=== PATIENT | male | born 1970 | race Caucasian/White ===

== ENCOUNTER 2020-11-16 16:16 | Emergency (ER) | payer MEDICAID, SELFPAY ==
[2020-11-16 16:54] VITALS: BP 133/87; PULSE 73; RESP 16; TEMP 36.8; O2SAT 97
--- NOTE | 2020-11-16 17:11 | XRR_ITS ---
PROCEDURE INFORMATION: Exam: XR Left Shoulder Exam date and time: 11/16/2020 5:11 PM Age: 50 years old Clinical indication: Pain; Shoulder; Left; Additional info: Fall injury TECHNIQUE: Imaging protocol: XR Left shoulder. Views: 2 or more views. COMPARISON: No relevant prior studies available. FINDINGS: Bones/joints: Normal. Soft tissues: Normal. XR/XR shoulder LT min 2V* [id number] IMPRESSION: No acute findings.
--- NOTE | 2020-11-16 18:56 | W.ED.EXTPRO ---
HPI - Extremity Problem General: Chief complaint: Extremity Injury, Upper Stated complaint: L. SHOULDER & HAND PAIN Time Seen by Provider: 11/16/20 18:50 Source: patient Mode of arrival: ambulatory Limitations: no limitations History of Present Illness: HPI Narrative: 50-year-old male states he was fishing yesterday and slipped and fell. He states he landed on his left shoulder. He states he had left shoulder pain since then. He is currently in a sling that he already had at home. He states he has some tingling into his hands. States he is able to move that arm but it does have pain when he moves it. He states pain is worse with movement improved with rest. He states that currently his pain is a 3 out of 10. Denies any other injuries when he fell. Denies hitting his head denies any neck pain. Associated symptoms: Deny chest pain, fever(s) or rash Review of Systems Const: Denies: fever(s), chills, body aches or change in appetite Eyes: Denies: blurry vision or eye discomfort ENMT: Denies: throat pain or dental pain Card: Denies: chest pain Resp: Denies: dyspnea GI: Denies: abdominal pain, nausea, vomiting or diarrhea : Denies: dysuria Musc: Reports: extremity pain Skin/Breast: Denies: rash Neuro: Denies: headache(s) Psych: Denies: depression Jaya/Lymph: Denies: easy bruising All/Imm: Denies: urticaria Physical Exam Const: COMMON NORMALS: no acute distress, patient oriented x3 and healthy appearing HENMT: COMMON NORMALS: normocephalic and atraumatic HEAD & SCALP: normocephalic and atraumatic Eye: COMMON NORMALS: Equal, round and reactive pupils present and EOMs intact bilaterally PUPIL: Yes Equal, round and reactive pupils present Neck/C-Spine: COMMON NORMALS: full ROM and supple Chest: COMMONS NORMALS: normal inspection of the chest and normal palpation of entire chest wall Resp: COMMON NORMALS: normal respiratory effort, No retractions, No use of accessory muscles and clear to auscultation bilaterally AUSCULTATION: clear to auscultation bilaterally Cardio: COMMON NORMALS: regular rate, regular rhythm and No murmurs present (Cardio) RATE: regular rate RHYTHM: regular rhythm GI: COMMON NORMALS: Normal to inspection, nondistended, normoactive bowel sounds present, Soft to palpation, non-tender and no masses PALPATION: Yes Soft to palpation Extremity: COMMON NORMALS: normal to inspection NARRATIVE EXTREMITY EXAM: Tenderness over left shoulder with no obvious deformity. Range of motion is intact. He has distal pulses and sensation intact. Neuro: COMMON NORMALS: patient oriented x3, moves all extremities and no focal motor deficits Psych: COMMON NORMALS: mental status grossly normal, Normal thought process present and cooperative THOUGHT PROCESS: Normal thought process present Skin: COMMON NORMALS: no rashes or lesions noted and no wounds GENERAL SKIN EXAM: no rashes or lesions noted Course Vital Signs: Vital signs: Vital Signs Temperature 98.3 F 11/16/20 16:54 Pulse Rate 73 11/16/20 16:54 Respiratory Rate 16 11/16/20 16:54 Blood Pressure 133/87 11/16/20 16:54 Pulse Oximetry 97 11/16/20 16:54 MDM - Extremity (Nontraumatic) MDM Narrative: Medical decision making narrative: Patient presents here with a shoulder sprain. X-ray shows no fractures. Exam here is benign. He is to continue to wear the sling and ice. We will set him up with follow-up with orthopedics. He has no other noted injuries from his fall. Imaging Data^: xr L shoulder: Attestation: I personally reviewed and interpreted this imaging study as follows: My impression: no acute fx Discharge Plan Discharge Patient Disposition: Home Clinical Impression: Sprain of left shoulder Qualifiers: Encounter type: initial encounter Shoulder sprain type: unspecified sprain Qualified Code(s): S43.402A - Unspecified sprain of left shoulder joint, initial encounter Condition: Stable Prescriptions: New methocarbamol 750 mg tablet 750 mg PO Q6H PRN (Reason: spasms) Qty: 20 RF: 0 Discharge Orders: Discharge ED (Routine); Ordered 11/16/20 Ordered By: Roque Oneill Discharge Diet: Advance as tolerated Discharge Activity: Resume usual activity Patient Instructions: Shoulder Sprain (ED) Coding Level of Care Code ED Biology Instructor for Moni Juárez
[2020-11-16 18:58] VITALS: BP 129/81; PULSE 70; O2SAT 99
[2020-11-16] MEDS: HYDROcodone-acetaminophen 5-325 mg Tablet 1 TAB PO (19:03)
--- NOTE | 2020-11-17 09:42 | DCPLANNER ---
manager oncology had message to schedule a follow up appointment for patient with ortho. manager oncology called the ortho clinic, spoke with Nicole, gave clinic patients information. manager oncology was told that patients information would be printed and reviewed. Clinic will call patient with appointment information.
--- NOTE | 2020-11-18 14:39 | DCPLANNER ---
Patient has a follow up appointment scheduled for Sunday, October, at 8:[address] Urena. Clinic will call patient with appointment information.
--- NOTE | 2021-01-06 07:46 | DCPLANNER ---
Patient had a follow up appointment scheduled for 11.22.[address] Urena at [facility] - patient did not attend appointment.
== END 2020-11-16 19:06 | disposition home or self-care (01) ==
PROVIDERS: Emergency Provider Emergency Medicine
DX: S43.402A Unspecified sprain of left shoulder joint, initial encounter (principal); W01.0XXA Fall on same level from slipping, tripping and stumbling without subsequent striking against object, initial encounter
CPT/HCPCS: 73030; 99283

== ENCOUNTER → 2021-10-14 09:41 | Outpatient (BNVA) | payer MEDICAID, SELFPAY | PROVIDERS: Visit Provider Nurse Practitioner | DX: I10 Essential (primary) hypertension (principal); Z20.2 Contact with and (suspected) exposure to infections with a predominantly sexual mode of transmission; Z79.899 Other long term (current) drug therapy | CPT/HCPCS: 80053; 80061; 80074; 80307; 82306; 84443; 85025; 86592; 87491; 87522; 87591 ==

== ENCOUNTER → 2021-12-06 09:35 | Outpatient (BNVA) | payer MEDICAID, SELFPAY | PROVIDERS: PCP Nurse Practitioner; Visit Provider Nurse Practitioner | DX: M79.89 Other specified soft tissue disorders (principal) | CPT/HCPCS: 85651; 86038; 86140; 86431 ==

== ENCOUNTER → 2022-02-28 15:04 | Outpatient (BNVA) | payer MEDICAID, SELFPAY | PROVIDERS: PCP Nurse Practitioner; Visit Provider Family Medicine | DX: N45.1 Epididymitis (principal); A64 Unspecified sexually transmitted disease; N39.0 Urinary tract infection, site not specified | CPT/HCPCS: 86592; 87806 ==

== ENCOUNTER → 2022-11-17 10:32 | Outpatient (BNVA) | payer MEDICAID, SELFPAY | PROVIDERS: PCP Nurse Practitioner; Visit Provider Nurse Practitioner | DX: Z79.899 Other long term (current) drug therapy (principal) | CPT/HCPCS: 80053; 83036; 84443; 85025; 87522 ==

== ENCOUNTER → 2023-05-07 09:52 | Outpatient (BNVA) | payer MEDICAID, SELFPAY | PROVIDERS: PCP Nurse Practitioner Family; Visit Provider Nurse Practitioner Family | DX: I10 Essential (primary) hypertension (principal); K21.9 Gastro-esophageal reflux disease without esophagitis; E11.9 Type 2 diabetes mellitus without complications | CPT/HCPCS: 71046; 73130; 80053; 80061; 83036; 85025 ==

== ENCOUNTER → 2024-07-30 16:13 | Outpatient (BNVA) | payer MEDICAID, SELFPAY | PROVIDERS: PCP Nurse Practitioner Family; Visit Provider Nurse Practitioner Family | DX: E11.9 Type 2 diabetes mellitus without complications (principal); M15.9 Polyosteoarthritis, unspecified; L03.90 Cellulitis, unspecified; B95.62 Methicillin resistant Staphylococcus aureus infection as the cause of diseases classified elsewhere; I10 Essential (primary) hypertension; K21.9 Gastro-esophageal reflux disease without esophagitis; G62.9 Polyneuropathy, unspecified; D64.9 Anemia, unspecified; F32.A Depression, unspecified; R06.02 Shortness of breath | CPT/HCPCS: 80053; 80061; 81003; 82306; 82607; 82728; 82746; 83036; 83550; 83735; 84439; 84443; 85025; 85651; 86038; 86140; 86200; 86431; G0103 ==

== ENCOUNTER → 2024-08-05 16:22 | Outpatient (BNVA) | payer MEDICAID, SELFPAY | PROVIDERS: PCP Nurse Practitioner Family; Visit Provider Nurse Practitioner Family | DX: E11.9 Type 2 diabetes mellitus without complications (principal); I10 Essential (primary) hypertension; K21.9 Gastro-esophageal reflux disease without esophagitis; A49.01 Methicillin susceptible Staphylococcus aureus infection, unspecified site; G62.9 Polyneuropathy, unspecified; D64.9 Anemia, unspecified; F32.A Depression, unspecified | CPT/HCPCS: 80053; 80061; 81003; 82306; 82607; 82728; 82746; 83036; 83550; 83735; 84439; 84443; 85025; 85651; 86038; 86140; 86200; 86431; G0103 ==

== ENCOUNTER → 2024-12-23 15:14 | Outpatient (BNVA) | payer MEDICAID, SELFPAY | PROVIDERS: PCP Nurse Practitioner Family; Visit Provider Nurse Practitioner Family | DX: E78.2 Mixed hyperlipidemia (principal); E11.9 Type 2 diabetes mellitus without complications | CPT/HCPCS: 80053; 83036; 85025 ==